=== PATIENT | male | born 1980 | race Two or more races ===

== ENCOUNTER 2024-01-03 09:12 | Emergency (ER) | payer SELFPAY ==
[~2024-01-03] VITALS: Ht 185.4 cm; Wt 107.5 kg
[2024-01-03 10:13] VITALS: BP 131/83; RESP 18; TEMP 98.1; O2SAT 95
[2024-01-03 10:53] LABS: Basophils # (auto) 0.1 10 ^3/uL (0-0.2); Basophils % (auto) 0.7 % (0.0-2.0); Eosinophils # (auto) 0.2 10 ^3/uL (0-0.8); Eosinophils % (auto) 1.8 % (0.0-7.0); Hematocrit 47.3 % (41.0-53.0); Hemoglobin 15.7 g/dL (13.5-17.5); Lymphocytes # (auto) 2.2 10 ^3/uL (0.4-5.4); Lymphocytes % (auto) 19.2 % (10.0-50.0); Mean Corpuscular Hemoglobin 29.3 pg (28.0-32.0); Mean Corpuscular Hgb Conc. 33.1 g/dL (32.0-36.0); Mean Corpuscular Volume 88.5 fL (80.0-100.0); Monocytes # (auto) 0.8 10 ^3/uL (0-1.3); Monocytes % (auto) 6.7 % (0.0-12.0); Neutrophils # (auto) 8.3 10 ^3/uL (1.6-8.6); Neutrophils % (auto) 71.6 % (37.0-80.0); Red Blood Cells 5.34 10^6/uL (4.5-5.90); Red Cell Distribution Width 13.4 % (11.8-14.3); White Blood Cell 11.6 10^3/uL (4.4-10.8)
[2024-01-03] MEDS: KETOROLAC TROMETH 60MG/2ML VIAL IM ONE (10:53)
[2024-01-03 11:11] LABS: Chloride 104 mmol/L (98-107); Potassium 3.9 mmol/L (3.5-5.1); Sodium 138 mmol/L (136-145)
[2024-01-03 11:12] LABS: Anion Gap 7 (5-15); Calcium 9.8 mg/dL (8.7-10.4); Carbon Dioxide 27 mmol/L (20-30)
[2024-01-03 11:17] LABS: Blood Urea Nitrogen 9 mg/dL (9-23); Glucose 112 mg/dL (74-106)
[2024-01-03 11:34] VITALS: PULSE 77
[2024-01-03] MEDS ORDERED: METH-1182 PO (11:41)
[2024-01-03] MEDS ORDERED: IBUP-1456 PO (11:41)
== END 2024-01-03 11:49 | disposition home or self-care (01) ==
LOC: ER 09:12
DX: M24.812 Other specific joint derangements of left shoulder, not elsewhere classified (principal); R07.89 Other chest pain; Z79.899 Other long term (current) drug therapy
CPT/HCPCS: 36415; 73030; 80048; 84484; 85025; 93005; 99285; J1885

== ENCOUNTER 2024-02-24 02:06 | Emergency (ER) | payer SELFPAY ==
[~2024-02-24] VITALS: Ht 185.4 cm; Wt 102.0 kg
[~2024-02-24 02:06] MED LIST: IBUP-1456 PO; METH-1182 PO
[2024-02-24 03:24] VITALS: BP 104/83; PULSE 93; RESP 20; TEMP 98.1; O2SAT 97
[2024-02-24] MEDS: KETOROLAC TROMETH 60MG/2ML VIAL IM ONE (03:31)
[2024-02-24 04:10] LABS: Urine Bacteria MANY /hpf (None Seen); Urine Blood 2+ /uL (Negative); Urine Clarity Turbid (Clear); Urine Color Light-Orange (Yellow); Urine Mucus FEW (None Seen); Urine Protein, UAD 1+ (Negative); Urine Specific Gravity 1.031 (1.001-1.035); Urine Urobilinogen Normal (Negative); Urine WBC 281 /hpf (0 - 3); Urine WBC Clumps PRESENT /hpf (None Seen); Urine pH 5.5 (5.0-9.0)
[2024-02-24] MEDS ORDERED: IBUP-1456 PO (04:31)
[2024-02-24] MEDS ORDERED: DOXY-448 PO (04:31)
[2024-02-24] MEDS: cefTRIAXone SOD 1,000 MG VL IM ONE (04:46)
== END 2024-02-24 05:58 | disposition home or self-care (01) ==
LOC: ER 02:06
DX: N45.1 Epididymitis (principal); N39.0 Urinary tract infection, site not specified; Z79.1 Long term (current) use of non-steroidal anti-inflammatories (NSAID); Z79.2 Long term (current) use of antibiotics; Z79.899 Other long term (current) drug therapy
CPT/HCPCS: 76870; 81001; 96372; 99285; J0696; J1885